=== PATIENT | male | born 1995 | race Caucasian/White ===

== ENCOUNTER 2018-07-01 10:58 | Emergency (ER) | payer OTHER ==
[~2018-07-01] VITALS: Ht 162.6 cm; Wt 56.7 kg
[~2018-07-01 10:58] MED LIST: HYDROCODON-ACE1 EAC7 PO; KEFLEX500 MG PO; NOHOMEMEDICATIONS
[2018-07-01] MEDS ORDERED: KEFLEX500 M1 PO (12:31)
[2018-07-01] MEDS ORDERED: NORCO 5-325 TA1 EAC1 PO (12:31)
[2018-07-01 12:57] VITALS: BP 110/59
== END 2018-07-01 12:58 | disposition home or self-care (01) ==
LOC: M.ERS 10:58
DX: S61.011A Laceration without foreign body of right thumb without damage to nail, initial encounter (principal); F17.220 Nicotine dependence, chewing tobacco, uncomplicated; E05.00 Thyrotoxicosis with diffuse goiter without thyrotoxic crisis or storm; W26.8XXA Contact with other sharp object(s), not elsewhere classified, initial encounter; Y92.89 Other specified places as the place of occurrence of the external cause; Y99.0 Civilian activity done for income or pay; Y99.8 Other external cause status